=== PATIENT | female | born 1970 | race Caucasian/White ===

== ENCOUNTER → 2019-11-07 09:34 | Outpatient (BNVA) | payer OTHER, SELFPAY | PROVIDERS: Family Provider Electrodiagnostic Medicine; PCP Electrodiagnostic Medicine; Visit Provider Podiatrist Foot & Ankle Surgery | DX: Z98.890 Other specified postprocedural states (principal) | CPT/HCPCS: 73630 ==

== ENCOUNTER 2020-02-20 14:54 | Outpatient (CLI) | payer OTHER, SELFPAY ==
--- NOTE | 2020-02-20 15:01 | XR_ITS ---
WS: [id number] SCREENING DEXA SCAN [employer] CLINICAL INFORMATION: POSTMENOPAUSAL COMPARISON: February 20, 2020 FINDINGS: The L1-L4 bone mineral density measures 1.262 g/cm2. This corresponds to a T score score of 0.7 and Z score of -0.1. Left femoral neck bone mineral density measures 1.187 g/cm2. This corresponds to a T score of 1.4 and Z score of 1.1. Right femoral neck bone mineral density measures 1.183 g/cm2. This corresponds to a T score 1.4of and Z score of 1.0. Mean femoral neck bone mineral density measures 1.185 g/cm2. This corresponds to a T score of 1.4 and Z score of 1.0. XR/XR DEXA axial skeleton* 29061 IMPRESSION: Normal bone mineralization. Patient's FRAX calculated 10 year probability for major osteoporotic fracture i s 5.7 % and osteoporotic hip fracture is 0.1%.
--- NOTE | 2020-02-20 15:59 | USCV_ITS ---
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 Slightly diminished resting TBI on the right side CONCLUSIONS Features of mild peripheral artery disease on the right side, involving the distal vessels No significant arterial obstruction on the left side Revised copy of the study done on 02/20/2020 Dr Ingrid Chen MD [facility] (Electronically Signed) Final Date: 20 February 2020 19:10 Amended: 20 February 2020 19:15 C
== END 2020-02-20 14:55 | disposition home or self-care (01) ==
LOC: RAD 15:00
PROVIDERS: Family Provider Electrodiagnostic Medicine; PCP Electrodiagnostic Medicine; Visit Provider Electrodiagnostic Medicine
DX: M79.661 Pain in right lower leg (principal); Z78.0 Asymptomatic menopausal state
CPT/HCPCS: 77080; 93922

== ENCOUNTER → 2021-06-17 14:40 | Outpatient (BNVA) | payer OTHER, SELFPAY | PROVIDERS: Family Provider Electrodiagnostic Medicine; PCP Electrodiagnostic Medicine; Visit Provider Obstetrics & Gynecology | DX: N89.8 Other specified noninflammatory disorders of vagina (principal) | CPT/HCPCS: 87481; 87512; 87798; 87799 ==

== ENCOUNTER → 2021-07-15 15:05 | Outpatient (BNVA) | payer OTHER, SELFPAY | PROVIDERS: Family Provider Electrodiagnostic Medicine; PCP Electrodiagnostic Medicine; Visit Provider Obstetrics & Gynecology | DX: L98.9 Disorder of the skin and subcutaneous tissue, unspecified (principal) | CPT/HCPCS: 88304 ==

== ENCOUNTER 2021-08-01 11:41 | Outpatient (RCR) | payer OTHER, SELFPAY | END 2021-08-13 23:59 | disposition home or self-care (01) | LOC: SOT 11:41 | PROVIDERS: Family Provider Electrodiagnostic Medicine; PCP Electrodiagnostic Medicine; Visit Provider Electrodiagnostic Medicine | DX: M77.10 Lateral epicondylitis, unspecified elbow (principal); M77.9 Enthesopathy, unspecified; M25.521 Pain in right elbow | CPT/HCPCS: 97110; 97140; 97165 ==

== ENCOUNTER 2021-08-14 06:00 | Outpatient (RCR) | payer OTHER, SELFPAY | END 2021-09-13 23:59 | disposition home or self-care (01) | LOC: SOT 06:00 | PROVIDERS: Family Provider Electrodiagnostic Medicine; PCP Electrodiagnostic Medicine; Visit Provider Electrodiagnostic Medicine | DX: M77.10 Lateral epicondylitis, unspecified elbow (principal); M77.9 Enthesopathy, unspecified; M25.521 Pain in right elbow | CPT/HCPCS: 97032; 97110; 97140 ==

== ENCOUNTER 2023-05-27 15:09 | Outpatient (CLI) | payer OTHER, SELFPAY ==
--- NOTE | 2023-05-27 15:00 | CT_ITS ---
WS: [id number] CT ABDOMEN AND PELVIS WITH CONTRAST HISTORY: LUQ PAIN TECHNIQUE: Imaging performed of the abdomen and pelvis with IV contrast. Single phase imaging of the abdomen. Coronal and sagittal reformats are submitted. All CT scans at [facility] use at [address] one of these dose optimization techniques: automated exposure control; mA and/or kV adjustment per patient size (includes targeted exams where dose is matched to clinical indication); or iterative re construction. IV CONTRAST: Omnipaque 350; 100 mL IV. Oral contrast: Yes. DLP: 1029.49 mGy.cm COMPARISON: 03/30/2017 Lower thorax: Lung bases are clear. Heart is normal size. Small hiatal hernia. Liver/biliary system: Normal size with no intrahepatic dilatation. Gallbladder: Mildly contracted. No adjacent inflammation. Pancreas: Normal size pancreas and pancreatic duct. No adjacent inflammation. Spleen: Normal size spleen. No mass or infarct. Adrenal glands: Normal. Right kidney: Normal. Left kidney: Normal. Aorta: Normal. Lymphadenopathy: None. Free fluid: None. GI tract: No obstruction or colitis. No appendicitis. Moderate fecal burden in the RIGHT colon. No ob structing colonic mass. No diverticulitis. Abdominal wall: Unremarkable abdominal wall. No hernia. Pelvis: Hysterectomy. Normal urinary bladder. Bones: Degenerative disc disease in the lumbar spine. IMPRESSION: 1. No GI tract obstruction. Slight increased fecal content in the RIGHT colon but no focal transitio n point or mass identified. Colonoscopy may be of benefit if this has not been performed. 2. No LEFT upper quadrant abnormalities identified. 3. No renal obstruction. 4. No ascites or mass. 5. Prior hysterectomy.
[2023-05-27] MEDS: iohexol 350 mg/mL 500 mL Btl (per mL) PO (15:55)
== END 2023-05-27 15:10 | disposition home or self-care (01) ==
PROVIDERS: Family Provider Electrodiagnostic Medicine; PCP Electrodiagnostic Medicine; Visit Provider Electrodiagnostic Medicine
DX: R10.12 Left upper quadrant pain (principal); Z90.710 Acquired absence of both cervix and uterus
CPT/HCPCS: 74177; Q9967

== ENCOUNTER → 2023-08-15 15:50 | Outpatient (BNVA) | payer OTHER, SELFPAY | PROVIDERS: Family Provider Electrodiagnostic Medicine; PCP Electrodiagnostic Medicine; Visit Provider Emergency Medicine | DX: R39.9 Unspecified symptoms and signs involving the genitourinary system (principal); N10 Acute pyelonephritis | CPT/HCPCS: 81000; 87077; 87086; 87184 ==

== ENCOUNTER → 2024-03-26 18:12 | Outpatient (BNVA) | payer OTHER, SELFPAY | PROVIDERS: Family Provider Electrodiagnostic Medicine; PCP Electrodiagnostic Medicine; Visit Provider Emergency Medicine | DX: R39.9 Unspecified symptoms and signs involving the genitourinary system (principal); N10 Acute pyelonephritis | CPT/HCPCS: 81000 ==

== ENCOUNTER 2025-03-08 09:41 | Outpatient (CLI) | payer OTHER, SELFPAY ==
--- NOTE | 2025-03-08 09:40 | MM_ITS ---
WS: [id number] BILATERAL SCREENING DIGITAL TOMOSYNTHESIS MAMMOGRAM WITH CAD HISTORY: SCREENING COMPARISON: 01/27/2017 Bilateral CC and MLO views with tomosynthesis and synthetic mammography submitted. Computer aided detection analyzed. Breast composition: There are scattered areas of fibroglandular density. No suspicious masses, microcalcifications or architectural distortion. Numerous calcifications within each breast. Biopsy clip upper outer quadrant RIGHT breast. MM/MM scr BI tomosynthesis [id number] IMPRESSION: BI-RADS: 2 - Benign. FOLLOW UP: 1 Year Follow-up
== END 2025-03-08 09:42 | disposition home or self-care (01) ==
PROVIDERS: Family Provider Electrodiagnostic Medicine; PCP Electrodiagnostic Medicine; Visit Provider Electrodiagnostic Medicine
DX: Z12.31 Encounter for screening mammogram for malignant neoplasm of breast (principal); R92.323 Mammographic fibroglandular density, bilateral breasts; R92.1 Mammographic calcification found on diagnostic imaging of breast
CPT/HCPCS: 77063; 77067